=== PATIENT | female | born 1960 | race Caucasian/White ===

== ENCOUNTER 2021-11-25 08:37 | Observation (INO) | payer SELFPAY ==
[2021-11-25 09:05] LABS: #Basophils 0.1 10x3/uL (0.0-0.2); #Monocytes 0.5 10x3/uL (0.0-1.1); #Neutrophils 2.3 10x3/uL (1.5-8.4); %Eosinophils 0.6 % (0.0-6.0); %Lymphocytes 43.6 % (18.0-47.0); %Monocytes 9.7 % (0.0-10.0); %Neutrophils 44.9 % (40.0-75.0); Hemoglobin 13.9 g/dL (12.0-15.5); Mean Corpuscular HGB CONC 34.2 g/dL (32.0-36.0); Mean Corpuscular Hemoglobin 31.5 pg (27.0-33.0); Mean Corpuscular Volume 92.1 fl (81.6-98.3); Mean Platelet Volume 9.4 fl (7.4-10.4); Platelet Count 239 10x3/uL (150-450); RBC Distribution Width 13.2 % (11.5-14.5); Red Blood Cell (RBC) Count 4.41 10x6/uL (3.90-5.03); White Blood Cell (WBC) Count 5.1 10x3/uL (3.5-10.5)
[2021-11-25 09:22] LABS: ALT (SGPT) 14 U/L (8-55); AST (SGOT) 25 U/L (5-34); Albumin 4.5 g/dL (3.4-4.8); Alkaline Phosphatase 66 U/L (40-110); Anion Gap 15 mmol/L (10-20); BUN (Urea Nitrogen) 12 mg/dL (9.8-20.1); Bilirubin, Total 0.8 mg/dL (0.2-1.2); Calc. Creatinine Clearance 0 mL/min (70-130); Calcium 10.3 mg/dL (7.8-10.44); Carbon Dioxide 26 mmol/L (23-31); Chloride 102 mmol/L (98-107); Globulin 3.5 g/dL (2.4-3.5); Glucose 86 mg/dL (80-115); Potassium 4.3 mmol/L (3.5-5.1); Sodium 139 mmol/L (136-145)
[2021-11-25] MEDS ORDERED: Aspirin Chewable 81 MG TAB ONE (10:12)
[2021-11-25] MEDS ORDERED: Nitroglycerin 2% Ointment 1 INCH/1 GM Packet ONE (10:12)
[2021-11-25] MEDS ORDERED: Acetaminophen 325 MG TAB PO PRN (10:36)
[2021-11-25] MEDS ORDERED: Nitroglycerin 0.4 MG TAB (25 Tab Bottle) SL PRN (10:36)
[2021-11-25] MEDS ORDERED: Ondansetron ODT 4 MG TAB PO PRN (10:36)
[2021-11-25] MEDS ORDERED: Ondansetron PF 4 MG/2 ML Vial IVP PRN (10:36)
[2021-11-25 11:20] VITALS: BMI 37.0
[2021-11-25 11:23] LABS: Magnesium 2.1 mg/dL (1.6-2.6)
[2021-11-25 13:16] LABS: SARS-CoV-2 NAA Rapid Test Not Detected (NotDetected)
[2021-11-25 14:22] LABS: Hemoglobin A1c 4.8 % (4.0-6.0)
[2021-11-26 04:38] LABS: Mean Corpuscular HGB CONC 33.4 g/dL (32.0-36.0); Mean Corpuscular Hemoglobin 31.5 pg (27.0-33.0); Mean Corpuscular Volume 94.2 fl (81.6-98.3); Mean Platelet Volume 9.5 fl (7.4-10.4); Platelet Count 240 10x3/uL (150-450); RBC Distribution Width 13.5 % (11.5-14.5); Red Blood Cell (RBC) Count 4.13 10x6/uL (3.90-5.03); White Blood Cell (WBC) Count 5.7 10x3/uL (3.5-10.5)
[2021-11-26 04:51] LABS: ALT (SGPT) 13 U/L (8-55); AST (SGOT) 19 U/L (5-34); Albumin 3.8 g/dL (3.4-4.8); Alkaline Phosphatase 63 U/L (40-110); Anion Gap 14 mmol/L (10-20); BUN (Urea Nitrogen) 15 mg/dL (9.8-20.1); Bilirubin, Total 0.6 mg/dL (0.2-1.2); Calc. Creatinine Clearance 112 mL/min (70-130); Calcium 9.8 mg/dL (7.8-10.44); Carbon Dioxide 26 mmol/L (23-31); Chloride 104 mmol/L (98-107); Cholesterol 234 mg/dl (< 200 Desired); Globulin 3.2 g/dL (2.4-3.5); Glucose 84 mg/dL (80-115); HDL Cholesterol 59 mg/dL (>60 Neg Risk); LDL Cholesterol, Calculated 160 mg/dL; Potassium 4.2 mmol/L (3.5-5.1); Sodium 140 mmol/L (136-145); Triglycerides 73 mg/dL (Less than 150)
[2021-11-26 05:14] LABS: MDiff Complete? YES
[2021-11-26 05:16] LABS: Band 1 % (5-11); Lymphocytes 57 % (21-51); Monocytes 5 % (0-10); Neutrophil 37 % (42-75)
[2021-11-26 05:17] LABS: Platelet Morphology Comment Appears Adequate; RBC Morphology Normal
[2021-11-26] MEDS ORDERED: Aspirin Chewable 81 MG TAB PO SCH (09:00)
[2021-11-26 09:18] LABS: Troponin I Less than 0.010 ng/mL (< 0.028)
[2021-11-26 10:52] VITALS: BP 119/69; TEMP 97.5
[2021-11-26] MEDS ORDERED: Atorvastatin Calcium 40 MG TAB PO SCH (21:00)
== END 2021-11-26 12:55 | disposition home or self-care (01) ==
LOC: CSHERS 08:37 → CSHTELE 11:06 → INTOOBSV 11:06
PROVIDERS: ADMIT Family Medicine; ATTEND Family Medicine
DX: R07.2 Precordial pain (principal); K21.9 Gastro-esophageal reflux disease without esophagitis; Z20.822 Contact with and (suspected) exposure to COVID-19
CPT/HCPCS: 36415; 71045; 80053; 80061; 83036; 83735; 84443; 84484; 85025; 93005; 93010; 93306; 94760; G0378; U0002

== ENCOUNTER 2023-12-22 09:18 | Outpatient (CLI) | payer OTHER | END 2023-12-22 09:19 | disposition home or self-care (01) | LOC: CSHMAMMO 09:18 | PROVIDERS: ATTEND Student in an Organized Health Care Education/Training Program | DX: Z12.31 Encounter for screening mammogram for malignant neoplasm of breast (principal); Z80.3 Family history of malignant neoplasm of breast | CPT/HCPCS: 77063; 77067 ==